=== PATIENT | female | born 1935 | race Caucasian/White ===

== ENCOUNTER 2019-08-16 20:09 | Inpatient (IN) | payer MEDICARE, OTHER ==
[2019-08-16 21:07] VITALS: BMI 28.3
[2019-08-16] MEDS ORDERED: Docusate 100 MG CAP PO PRN (21:10)
[2019-08-16] MEDS ORDERED: hydrALAZINE 20 MG/ML VIAL SLOW IVP PRN (21:22)
[2019-08-16] MEDS ORDERED: Cyclobenzaprine 10 MG TAB PO PRN (21:23)
[2019-08-16] MEDS ORDERED: Acetaminophen/Codeine 30-300mg Tablet PO PRN (21:23)
[2019-08-16] MEDS ORDERED: Acetaminophen/Codeine 30-300mg Tablet PO SCH (21:30)
[2019-08-16] MEDS ORDERED: Calcium Carbonate + Vit D 1 TAB PO SCH (21:30)
[2019-08-16] MEDS ORDERED: Montelukast Sodium 10 mg Tablet PO SCH (21:30)
[2019-08-16] MEDS ORDERED: Estrogens, Conjugated 0.3 MG TAB PO SCH (21:30)
[2019-08-16] MEDS ORDERED: Metoprolol Tartrate 25 MG TAB PO SCH (21:30)
[2019-08-16] MEDS ORDERED: Senokot 8.6 MG TAB PO SCH (21:30)
[2019-08-16] MEDS ORDERED: Hydrochlorothiazide 25 MG TAB PO SCH (21:30)
[2019-08-16] MEDS: Ondansetron ODT 4 MG TAB PO PRN (22:18)
[2019-08-17] MEDS: Acetaminophen/Codeine 30-300mg Tablet PO SCH ×6 (01:00→20:43)
[2019-08-17 05:36] LABS: Hemoglobin 8.8 g/dL (12.0-16.0); Platelet Count 162 thou/uL (130-400)
[2019-08-17] MEDS: Levothyroxine Sodium 75 MCG TAB PO SCH (05:49)
[2019-08-17] MEDS: Ondansetron ODT 4 MG TAB PO PRN ×2 (05:50→12:12)
[2019-08-17] MEDS: Ipratropium Bromide 2.5 ml Neb NEB SCH ×4 (05:52→17:10)
[2019-08-17 05:54] LABS: INR-International Normal Ratio 1.1; Prothrombin Time 13.9 SEC (12.0-14.7)
[2019-08-17] MEDS ORDERED: Acetaminophen 325 MG TAB PO SCH (08:00)
[2019-08-17] MEDS: Senokot 8.6 MG TAB PO SCH ×2 (08:21→20:54)
[2019-08-17] MEDS: Polyethylene Glycol 3350 17 GM Packet PO SCH (08:22)
[2019-08-17] MEDS: Famotidine 20 MG TAB PO SCH (08:22)
[2019-08-17] MEDS: Mometasone/Formoterol 60 PUFF AER INH SCH ×2 (08:29→20:57)
[2019-08-17] MEDS: Ibuprofen 400 MG TAB PO PRN ×2 (09:31→20:56)
[2019-08-17] MEDS ORDERED: Warfarin Sodium 5 MG TAB PO SCH (17:00)
[2019-08-17] MEDS ORDERED: Warfarin Sodium 2.5 MG TAB PO SCH (17:00)
[2019-08-17] MEDS: Estrogens, Conjugated 0.3 MG TAB PO SCH (20:49)
[2019-08-17] MEDS: Calcium Carbonate + Vit D 1 TAB PO SCH (20:52)
[2019-08-17] MEDS: Hydrochlorothiazide 25 MG TAB PO SCH (20:52)
[2019-08-17] MEDS: Montelukast Sodium 10 mg Tablet PO SCH (20:53)
[2019-08-17] MEDS: Metoprolol Tartrate 25 MG TAB PO SCH (20:53)
[2019-08-18] MEDS: Melatonin 3 MG TAB PO PRN (00:11)
[2019-08-18] MEDS: Ipratropium Bromide 2.5 ml Neb NEB SCH ×4 (00:15→17:23)
[2019-08-18] MEDS: Acetaminophen/Codeine 30-300mg Tablet PO SCH ×6 (02:54→19:59)
[2019-08-18] MEDS: Levothyroxine Sodium 75 MCG TAB PO SCH (05:17)
[2019-08-18 05:46] LABS: INR-International Normal Ratio 1.1; Prothrombin Time 14.6 SEC (12.0-14.7)
[2019-08-18] MEDS: Ondansetron ODT 4 MG TAB PO PRN ×3 (09:13→21:43)
[2019-08-18] MEDS: Mometasone/Formoterol 60 PUFF AER INH SCH ×2 (10:12→20:02)
[2019-08-18] MEDS: Famotidine 20 MG TAB PO SCH (10:12)
[2019-08-18] MEDS: Polyethylene Glycol 3350 17 GM Packet PO SCH (10:12)
[2019-08-18] MEDS: Senokot 8.6 MG TAB PO SCH ×2 (10:13→19:59)
[2019-08-18] MEDS: Ibuprofen 400 MG TAB PO PRN (15:21)
[2019-08-18] MEDS ORDERED: Warfarin Sodium 5 MG TAB PO SCH (17:00)
[2019-08-18] MEDS: Montelukast Sodium 10 mg Tablet PO SCH (19:59)
[2019-08-18] MEDS: Metoprolol Tartrate 25 MG TAB PO SCH (20:00)
[2019-08-18] MEDS: Hydrochlorothiazide 25 MG TAB PO SCH (20:00)
[2019-08-18] MEDS: Calcium Carbonate + Vit D 1 TAB PO SCH (20:01)
[2019-08-18] MEDS: Estrogens, Conjugated 0.3 MG TAB PO SCH (20:01)
[2019-08-19] MEDS: Melatonin 3 MG TAB PO PRN ×2 (00:11→23:05)
[2019-08-19] MEDS: Ibuprofen 400 MG TAB PO PRN (00:11)
[2019-08-19] MEDS: Ipratropium Bromide 2.5 ml Neb NEB SCH ×5 (00:12→23:05)
[2019-08-19] MEDS: Acetaminophen/Codeine 30-300mg Tablet PO SCH ×3 (00:49→08:51)
[2019-08-19] MEDS ORDERED: Ondansetron ODT 4 MG TAB ONE (02:46)
[2019-08-19] MEDS: Ondansetron ODT 4 MG TAB PO PRN ×3 (02:51→20:38)
[2019-08-19] MEDS: Levothyroxine Sodium 75 MCG TAB PO SCH (05:17)
[2019-08-19 05:20] LABS: Hemoglobin 8.3 g/dL (12.0-16.0); Platelet Count 171 thou/uL (130-400)
[2019-08-19 05:29] LABS: INR-International Normal Ratio 1.1; Prothrombin Time 14.5 SEC (12.0-14.7)
[2019-08-19] MEDS: Famotidine 20 MG TAB PO SCH (08:51)
[2019-08-19] MEDS: Polyethylene Glycol 3350 17 GM Packet PO SCH (08:52)
[2019-08-19] MEDS: Mometasone/Formoterol 60 PUFF AER INH SCH ×2 (08:52→20:40)
[2019-08-19] MEDS: Senokot 8.6 MG TAB PO SCH ×2 (08:52→20:39)
[2019-08-19 08:55] LABS: ALT (SGPT) 9 U/L (8-55); AST (SGOT) 19 U/L (5-34); Albumin 3.2 g/dL (3.4-4.8); Alkaline Phosphatase 56 U/L (40-110); Anion Gap 14 mmol/L (10-20); BUN (Urea Nitrogen) 27 mg/dL (9.8-20.1); Bilirubin, Total 1.1 mg/dL (0.2-1.2); Calc. Creatinine Clearance 60 mL/min (70-130); Calcium 8.9 mg/dL (7.8-10.44); Carbon Dioxide 28 mmol/L (23-31); Chloride 100 mmol/L (98-107); Estimated GFR-MDRD 62; Globulin 2.5 g/dL (2.4-3.5); Glucose 104 mg/dL (83-110); Magnesium 1.6 mg/dL (1.6-2.6); Potassium 3.5 mmol/L (3.5-5.1); Protein, Total 5.7 g/dL (6.0-8.3); Sodium 138 mmol/L (136-145)
[2019-08-19] MEDS: Acetaminophen 500 MG TAB PO SCH ×3 (11:28→23:04)
[2019-08-19] MEDS: Ibuprofen 800 MG TAB PO SCH ×2 (11:28→17:49)
[2019-08-19] MEDS ORDERED: Sodium Chloride Irrig Solution 250 ML BOT ONE (12:29)
--- NOTE | 2019-08-19 15:04 | HP ---
PRIMARY CARE PHYSICIAN: Dr. Veena Gomez in [place], [place]. HISTORY OF PRESENT ILLNESS: The patient is an 83-year-old female with past history of atrial fibrillation, being admitted to [facility] for continued rehabilitation, status post right hip fracture. The patient's hip fracture occurred as a result of ground level fall. She underwent right femur intramedullary nail fixation on August 15, 2019, and reportedly had no complications. Since admission, the patient, per nursing, has had nausea over the weekend and some diarrhea today. Per the patient, she actually had been having this issue since prior to arrival and has actually had poor appetite since after surgery. She has no other complaints and states the pain is under control at this time. She denies any abdominal pain. ALLERGIES: NO KNOWN DRUG ALLERGIES. PAST MEDICAL HISTORY: 1. Atrial fibrillation. 2. COPD. 3. Hypertension. 4. Hypothyroidism. 5. Postmenopausal syndrome. CURRENT MEDICATIONS: 1. Metoprolol tartrate 25 mg p.o. at bedtime. 2. Advair Diskus 250/50 one puff inhalation b.i.d. 3. Premarin 0.3 mg p.o. at bedtime. 4. Melatonin 3 mg p.o. at bedtime p.r.n. 5. Warfarin 7.5 mg every Monday. 6. Warfarin 5 mg p.o. Monday through Monday. 7. Simvastatin 40 mg p.o. at bedtime. 8. Spiriva 18 mcg inhalation daily. 9. Levothyroxine 75 mcg p.o. daily. 10. Hydrochlorothiazide 12.5 mg p.o. at bedtime. 11. Flexeril 5 mg p.o. t.i.d. p.r.n. 12. Calcium carbonate/vitamin D3 one tab p.o. at bedtime. PAST SURGICAL HISTORY: 1. Right hip intramedullary nail fixation. 2. Appendectomy. 3. Cholecystectomy. 4. Hysterectomy. 5. Brain surgery for hydrocephalus. SOCIAL HISTORY: The patient lives at home with her spouse. Denies tobacco, alcohol, or drug use. REVIEW OF SYSTEMS: GENERAL: The patient denies fever or chills. She does report appetite, decreased. EYES: The patient denies vision changes or eye pain. HENT: The patient denies nasal congestion or sore throat. CARDIOVASCULAR: The patient denies chest pain or palpitations. RESPIRATORY: The patient denies cough or shortness of breath. ABDOMEN: The patient reports nausea, vomiting, and diarrhea. Denies abdominal pain. SKIN: The patient denies any rash or pruritus. HEMATOLOGICAL: The patient denies easy bruising. MUSCULOSKELETAL: The patient denies weakness or joint pain. NEUROLOGICAL: The patient denies headache, numbness, or tingling. PSYCHIATRIC: The patient denies depression or anxiety symptoms. PHYSICAL EXAMINATION: VITAL SIGNS: Temperature 99.2, pulse 118, respirations 24, and O2 saturation 95 % on room air. GENERAL: The patient is alert and oriented x3, in no distress. HEENT: Eyes; pupils are equal, round, and reactive to light. Extraocular muscles intact. Conjunctivae are clear. Normocephalic, atraumatic. Moist mucous membranes. No oral lesions. NECK: Supple. CARDIOVASCULAR: Irregularly irregular rate and rhythm, tachycardic rate. No murmurs, rubs, or gallops. LUNGS: Clear to auscultation bilaterally. ABDOMEN: Normoactive bowel sounds. Soft, nontender to palpation. No organomegaly. No tenderness. EXTREMITIES: Normal bulk and tone. SKIN: No rashes or lesions. NEUROLOGICAL: Cranial nerves II through XII intact grossly. LABORATORY DATA: Hemoglobin 8.3, hematocrit 25.2, and platelet count 171. Coagulation panel; PT 14.5, INR 1.1. Chemistry panel; sodium 138, potassium 3.5, chloride 100, carbon dioxide 28, BUN 27, creatinine 0.87, glucose 104, calcium 8.9, magnesium 1.6, total bilirubin 1.1, AST 19, ALT 9, and alkaline phosphatase 56. TSH 2.5917. ASSESSMENT AND PLAN: 1. Status post right hip intramedullary nail. Physical therapy and occupational therapy have been ordered for rehabilitation purposes. We will monitor the patient's progress as she is able to participate with physical therapy. Outpatient followup with Dr. Parra has been arranged for September 26, 2019, and per his recommendations, we are able to remove opal on August 30, 2019. We will schedule Tylenol and Motrin for pain control. At this time, we will discontinue Tylenol with Codeine as the patient's nausea may be related to this. We will add on SCDs for deep venous thrombosis prophylaxis until warfarin is in therapeutic range. 2. Intractable nausea and vomiting with diarrhea, possibly related to a gastroenteritis. We will obtain stool studies. At this point, we will start the patient on a clear liquid diet and we will advance as tolerated. The patient encouraged to take sips of water all day. See above regarding discontinuation of Tylenol with Codeine. We will continue to monitor. 3. Atrial fibrillation. a. The patient's rate is currently tachycardic, possibly some degree of dehydration given. b. The patient's metoprolol currently was started as metoprolol tartrate and is currently scheduled as once daily. We are working to verify that this is what patient is actually taking at home as metoprolol tartrate is typically three dose twice daily. We will continue to monitor. c. We will monitor the patient's INRs and we will request the pharmacy to assist with dosing warfarin. 4. Chronic obstructive pulmonary disease. The patient tolerating room air. We will continue her home medications regarding this. 5. Hypothyroidism. The patient's TSH is within normal limits. We will continue levothyroxine. 6. Postmenopausal syndrome. The patient is on Premarin. I did discuss the risks and benefits associated with continuing Premarin especially regarding the patient's increased risk of deep venous thrombosis formation, status post hip fracture. The patient did express understanding and would like to continue with Premarin. We will monitor closely. 7. Hypertension. We will resume the patient's home antihypertensive regimen. We will continue to monitor BP. BP remained stable. Job ID: [id number] MTDD
[2019-08-19] MEDS ORDERED: Warfarin Sodium 2 MG TAB PO SCH (17:00)
[2019-08-19] MEDS: Metoclopramide HCl 10 MG TAB PO SCH ×2 (17:46→20:39)
[2019-08-19] MEDS: Calcium Carbonate + Vit D 1 TAB PO SCH (20:39)
[2019-08-19] MEDS: Hydrochlorothiazide 25 MG TAB PO SCH (20:39)
[2019-08-19] MEDS: Montelukast Sodium 10 mg Tablet PO SCH (20:39)
[2019-08-19] MEDS: Enoxaparin Sodium 80 MG/0.8 ML SYRINGE SC SCH (20:43)
[2019-08-19] MEDS ORDERED: PREMARIN 0.3 MG PO SCH (21:00)
[2019-08-20] MEDS: Ondansetron ODT 4 MG TAB PO PRN (05:09)
[2019-08-20 06:07] LABS: INR-International Normal Ratio 1.3
[2019-08-20] MEDS: Ibuprofen 800 MG TAB PO SCH ×2 (06:16→11:07)
[2019-08-20] MEDS: Acetaminophen 500 MG TAB PO SCH ×2 (06:16→11:08)
[2019-08-20] MEDS: Ipratropium Bromide 2.5 ml Neb NEB SCH ×3 (06:17→12:08)
[2019-08-20] MEDS: Levothyroxine Sodium 75 MCG TAB PO SCH (06:17)
[2019-08-20] MEDS: Mometasone/Formoterol 60 PUFF AER INH SCH (08:03)
[2019-08-20] MEDS: Senokot 8.6 MG TAB PO SCH (08:04)
[2019-08-20] MEDS: Polyethylene Glycol 3350 17 GM Packet PO SCH (08:04)
[2019-08-20] MEDS: Famotidine 20 MG TAB PO SCH (08:05)
[2019-08-20] MEDS: Metoclopramide HCl 10 MG TAB PO SCH (08:05)
[2019-08-20 08:28] LABS: #Basophils 0.1 thou/uL (0.0-0.2); #Eosinphils 0.1 thou/uL (0.0-0.7); #Lymphocytes 0.9 thou/uL (1.20-3.40); #Neutrophils 7.8 thou/uL (1.40-6.50); %Basophils 1.1 % (0.0-1.0); %Eosinophils 0.8 % (0.0-10.0); %Lymphocytes 8.9 % (21.0-51.0); %Monocytes 10.2 % (0.0-10.0); %Neutrophils 79.1 % (42.0-75.0); Hemoglobin 9.2 g/dL (12.0-16.0); Mean Corpuscular HGB CONC 31.5 g/dL (32.0-36.0); Mean Corpuscular Hemoglobin 29.9 pg (27.0-31.0); Mean Corpuscular Volume 94.9 fL (78.0-98.0); Platelet Count 208 thou/uL (130-400); RBC Distribution Width 14.2 % (11.5-14.5); Red Blood Cell (RBC) Count 3.09 mill/uL (4.20-5.40); White Blood Cell (WBC) Count 9.9 thou/uL (4.8-10.8)
[2019-08-20 08:37] LABS: ALT (SGPT) 10 U/L (8-55); AST (SGOT) 19 U/L (5-34); Albumin 3.5 g/dL (3.4-4.8); Alkaline Phosphatase 65 U/L (40-110); Anion Gap 18 mmol/L (10-20); BUN (Urea Nitrogen) 25 mg/dL (9.8-20.1); Bilirubin, Total 1.3 mg/dL (0.2-1.2); Calc. Creatinine Clearance 48 mL/min (70-130); Calcium 9.1 mg/dL (7.8-10.44); Carbon Dioxide 27 mmol/L (23-31); Chloride 97 mmol/L (98-107); Estimated GFR-MDRD 49; Globulin 2.8 g/dL (2.4-3.5); Glucose 111 mg/dL (83-110); Potassium 3.2 mmol/L (3.5-5.1); Protein, Total 6.3 g/dL (6.0-8.3); Sodium 139 mmol/L (136-145)
--- NOTE | 2019-08-20 09:22 | RAD ---
ABDOMEN 2 VIEWS: HISTORY: Nausea and vomiting. FINDINGS: There are abnormally dilated loops of small bowel with air fluid levels, evidence for at least a mid grade small bowel obstruction. There is some gas and fecal material in the colon. There is increase d opacity in the left upper quadrant which may represent a fluid-filled distended stomach. No free i ntraperitoneal air. IMPRESSION: Evidence for small bowel obstruction. Probable fluid-filled distended stomach. Minimal gas and feca l material in the colon. CODE T POS: TPC
[2019-08-20] MEDS ORDERED: Sodium Chloride 0.9% 500 ML IV SCH (09:45)
[2019-08-20] MEDS ORDERED: Potassium Chloride 20 MEQ/100 ML PREMIX BAG IVPB SCH (09:45)
[2019-08-20] MEDS ORDERED: Sodium Chloride 0.9% 1,000 ML IV SCH (09:45)
[2019-08-20] MEDS ORDERED: Potassium Chloride 20 MEQ in Premix Bag 1 BAG IVPB SCH (10:00)
[2019-08-20] MEDS: Enoxaparin Sodium 80 MG/0.8 ML SYRINGE SC SCH (10:01)
[2019-08-20 11:49] VITALS: BP 138/60; TEMP 99.2
[2019-08-20] MEDS ORDERED: Sodium Chloride 0.9% 500 ML BAG ONE (12:31)
[2019-08-20] MEDS ORDERED: Sodium Chloride 0.9% 1,000 ML BAG ONE (12:31)
--- NOTE | 2019-08-21 04:56 | DIS ---
DATE OF ADMISSION: 08/16/2019 DATE OF DISCHARGE: 08/20/2019 ADMITTING ATTENDING: Yuridia Flores MD. DISCHARGE ATTENDING: Yuridia Flores MD. PRIMARY CARE PHYSICIAN: Dr. Veena Gomez in [place], [place]. PRIMARY DIAGNOSIS AND REASON FOR TRANSFER: Small-bowel obstruction. SECONDARY DIAGNOSES: 1. Status post right hip fracture with intramedullary nail. 2. Chronic atrial fibrillation. 3. Chronic obstructive pulmonary disease. 4. Hypothyroidism. 5. Postmenopausal syndrome. DISCHARGE MEDICATIONS: 1. Metoprolol succinate 25 mg p.o. at bedtime. 2. Advair 250/50 one puff inhalation b.i.d. 3. Premarin 0.3 mg p.o. at bedtime. 4. Montelukast 10 mg p.o. q.p.m. 5. Melatonin 3 mg p.o. at bedtime p.r.n. 6. Warfarin sodium 6 mg p.o. daily. 7. Simvastatin 40 mg p.o. at bedtime. 8. Spiriva 18 mcg one inhalation daily. 9. Synthroid 75 mcg p.o. daily. 10. Hydrochlorothiazide 12.5 mg p.o. at bedtime. 11. Ibuprofen 400 mg p.o. q.8 hours p.r.n. 12. Pepcid 20 mg p.o. daily. 13. Flexeril 5 mg p.o. t.i.d. p.r.n. 14. Calcium carbonate/vitamin D3 one tablet p.o. at bedtime. DISCONTINUED MEDICATIONS: None. PROCEDURES: Abdominal x-ray, 2-view that showed evidence for small bowel obstruction, probable fluid-filled distended stomach. Minimal gas and fecal material in the colon. HOSPITAL COURSE: The patient is an is an 83-year-old female with recent admission for rehabilitation status post right hip surgery. The patient was noted to have significant nausea, vomiting, intractable to antiemetic medications. Abdominal x-ray performed today showed the above findings. The decision was made to transfer patient to a higher level of care with surgical specialties available, if needed. At this moment, pt still reports significant nausea, and hesistancy to eat. She has not had a bowel movement, but does report passing flatus. PHYSICAL EXAMINATION: VITAL SIGNS: On the day of discharge, patient's vitals were as follows, temperature 99.2, pulse 105, respirations 16, oxygen 98% on room air, blood pressure 138/ 60. GENERAL: The patient is alert and oriented, ill-appearing, otherwise in no distress. HEENT: Normocephalic, atraumatic. Dry mucous membranes and extraocular muscles intact. HEART: Irregularly irregular rate and rhythm. Tachycardic rate. LUNGS: Clear to auscultation bilaterally. No crackles, wheezes, or rhonchi. ABDOMEN: Mild distention. Nontender to palpation. Normoactive bowel sounds. EXTREMITIES: Normal bulk and tone. No edema. LABORATORY DATA: Hemoglobin 9.2, hematocrit 29.3. Coagulation panel, PT 16.0, INR 1.3. DISPOSITION: Stable. Patient transfer was arranged after speaking with the admitting physician in [place], who agreed for transfer. IV fluids were started prior to transfer. DISCHARGE INSTRUCTIONS: 1. Location: [facility] in [place], [place]. 2. Diet: N.p.o. 3. Activities: Ad adrianna. However, patient may be evaluated for physical therapy. 4. Followup: The patient will likely be readmitted to [facility] [place] pending resolution of small-bowel obstruction. Total time spent arranging discharge/coordinating transfer: 35 minutes Job ID: [id number] MTDD
== END 2019-08-20 12:37 | disposition short-term general hospital (02) | DRG 389 ==
LOC: MADMS 20:09
PROVIDERS: ADMIT Family Medicine; ATTEND Family Medicine
DX: K56.609 Unspecified intestinal obstruction, unspecified as to partial versus complete obstruction (principal); I48.20 Chronic atrial fibrillation, unspecified; J44.9 Chronic obstructive pulmonary disease, unspecified; E03.9 Hypothyroidism, unspecified; N95.9 Unspecified menopausal and perimenopausal disorder; E86.0 Dehydration; I10 Essential (primary) hypertension; Z98.890 Other specified postprocedural states; Z90.49 Acquired absence of other specified parts of digestive tract; Z90.710 Acquired absence of both cervix and uterus
CPT/HCPCS: 36415; 74019; 80053; 83735; 84443; 85014; 85018; 85025; 85049; 85610; 94640; 94664; J1650; J7050; Q0162

== ENCOUNTER 2019-09-03 13:39 | Inpatient (IN) | payer MEDICARE, OTHER ==
[2019-09-03] MEDS ORDERED: Senokot S 8.6-50 MG TAB PO PRN (17:00)
[2019-09-03] MEDS ORDERED: Ondansetron ODT 4 MG TAB PO PRN (17:00)
[2019-09-03] MEDS ORDERED: Bisacodyl 5 MG TAB PO PRN (17:00)
[2019-09-03] MEDS ORDERED: Cyclobenzaprine 10 MG TAB PO PRN (19:10)
[2019-09-03] MEDS: Calcium Carbonate 600 MG + Vit D TAB PO SCH (20:49)
[2019-09-03] MEDS: Hydrochlorothiazide 25 MG TAB PO SCH (20:50)
[2019-09-03] MEDS: Montelukast Sodium 10 mg Tablet PO SCH (20:51)
[2019-09-03] MEDS: Simvastatin 40 MG TAB PO SCH (20:51)
[2019-09-03] MEDS: Mometasone/Formoterol 200/5 60 PUFF INH SCH (20:52)
[2019-09-03] MEDS: ESTROGENS CONJUGATED 0.3 MG PO SCH (20:54)
[2019-09-03] MEDS: Melatonin 3 MG TAB PO PRN (20:59)
[2019-09-04] MEDS: Ipratropium Bromide 2.5 ml Neb NEB SCH ×4 (00:49→17:15)
[2019-09-04] MEDS: Levothyroxine Sodium 75 MCG TAB PO SCH (05:24)
[2019-09-04] MEDS: Mometasone/Formoterol 200/5 60 PUFF INH SCH ×2 (08:17→20:18)
[2019-09-04] MEDS: Famotidine 20 MG TAB PO SCH (08:17)
[2019-09-04] MEDS: Polyethylene Glycol 3350 17 GM Packet PO SCH (08:17)
[2019-09-04] MEDS: Ibuprofen 200 MG TAB PO PRN (08:17)
[2019-09-04] MEDS: Enoxaparin Sodium 40 MG/0.4 ML SYRINGE SC SCH (08:17)
[2019-09-04] MEDS: Warfarin Sodium 5 MG TAB PO SCH (17:14)
[2019-09-04] MEDS: ESTROGENS CONJUGATED 0.3 MG PO SCH (20:15)
[2019-09-04] MEDS: Montelukast Sodium 10 mg Tablet PO SCH (20:16)
[2019-09-04] MEDS: Calcium Carbonate 600 MG + Vit D TAB PO SCH (20:16)
[2019-09-04] MEDS: Simvastatin 40 MG TAB PO SCH (20:16)
[2019-09-04] MEDS: Hydrochlorothiazide 25 MG TAB PO SCH (20:17)
[2019-09-04] MEDS: Melatonin 3 MG TAB PO PRN (22:01)
[2019-09-05] MEDS: Ipratropium Bromide 2.5 ml Neb NEB SCH ×4 (01:38→17:38)
[2019-09-05] MEDS: Ibuprofen 200 MG TAB PO PRN (03:53)
[2019-09-05] MEDS: Levothyroxine Sodium 75 MCG TAB PO SCH (05:03)
[2019-09-05] MEDS: Mometasone/Formoterol 200/5 60 PUFF INH SCH ×2 (08:50→21:36)
[2019-09-05] MEDS: Enoxaparin Sodium 40 MG/0.4 ML SYRINGE SC SCH (08:51)
[2019-09-05] MEDS: Polyethylene Glycol 3350 17 GM Packet PO SCH (08:51)
[2019-09-05] MEDS: Famotidine 20 MG TAB PO SCH (08:52)
[2019-09-05] MEDS: Warfarin Sodium 5 MG TAB PO SCH (17:37)
[2019-09-05] MEDS: Calcium Carbonate 600 MG + Vit D TAB PO SCH (21:34)
[2019-09-05] MEDS: ESTROGENS CONJUGATED 0.3 MG PO SCH (21:34)
[2019-09-05] MEDS: Hydrochlorothiazide 25 MG TAB PO SCH (21:35)
[2019-09-05] MEDS: Montelukast Sodium 10 mg Tablet PO SCH (21:36)
[2019-09-05] MEDS: Simvastatin 40 MG TAB PO SCH (21:36)
[2019-09-05] MEDS: Melatonin 3 MG TAB PO PRN (22:02)
[2019-09-06] MEDS: Ipratropium Bromide 2.5 ml Neb NEB SCH ×4 (01:10→18:08)
[2019-09-06] MEDS: Levothyroxine Sodium 75 MCG TAB PO SCH (06:06)
[2019-09-06 06:07] LABS: Prothrombin Time 13.1 SEC (12.0-14.7)
[2019-09-06] MEDS: Mometasone/Formoterol 200/5 60 PUFF INH SCH ×2 (09:29→21:13)
[2019-09-06] MEDS: Enoxaparin Sodium 40 MG/0.4 ML SYRINGE SC SCH (09:30)
[2019-09-06] MEDS: Famotidine 20 MG TAB PO SCH (09:30)
[2019-09-06] MEDS: Polyethylene Glycol 3350 17 GM Packet PO SCH (09:30)
[2019-09-06] MEDS: Warfarin Sodium 5 MG TAB PO SCH (17:01)
[2019-09-06] MEDS: ESTROGENS CONJUGATED 0.3 MG PO SCH (21:11)
[2019-09-06] MEDS: Calcium Carbonate 600 MG + Vit D TAB PO SCH (21:11)
[2019-09-06] MEDS: Hydrochlorothiazide 25 MG TAB PO SCH (21:12)
[2019-09-06] MEDS: Montelukast Sodium 10 mg Tablet PO SCH (21:13)
[2019-09-06] MEDS: Melatonin 3 MG TAB PO PRN (21:14)
[2019-09-06] MEDS: Simvastatin 40 MG TAB PO SCH (21:14)
[2019-09-07] MEDS: Ipratropium Bromide 2.5 ml Neb NEB SCH ×4 (01:12→17:56)
[2019-09-07] MEDS: Levothyroxine Sodium 75 MCG TAB PO SCH (05:21)
[2019-09-07 05:48] LABS: Hemoglobin 9.5 g/dL (12.0-16.0); Platelet Count 201 thou/uL (130-400)
[2019-09-07 05:51] LABS: INR-International Normal Ratio 1.1; Prothrombin Time 13.9 SEC (12.0-14.7)
[2019-09-07] MEDS: Enoxaparin Sodium 40 MG/0.4 ML SYRINGE SC SCH (08:11)
[2019-09-07] MEDS: Famotidine 20 MG TAB PO SCH (08:11)
[2019-09-07] MEDS: Polyethylene Glycol 3350 17 GM Packet PO SCH (08:12)
[2019-09-07] MEDS: Mometasone/Formoterol 200/5 60 PUFF INH SCH ×2 (08:13→21:07)
[2019-09-07] MEDS ORDERED: Warfarin Sodium 2.5 MG TAB PO SCH (17:00)
[2019-09-07] MEDS: ESTROGENS CONJUGATED 0.3 MG PO SCH (21:06)
[2019-09-07] MEDS: Calcium Carbonate 600 MG + Vit D TAB PO SCH (21:06)
[2019-09-07] MEDS: Hydrochlorothiazide 25 MG TAB PO SCH (21:06)
[2019-09-07] MEDS: Simvastatin 40 MG TAB PO SCH (21:08)
[2019-09-07] MEDS: Melatonin 3 MG TAB PO PRN (21:08)
[2019-09-07] MEDS: Montelukast Sodium 10 mg Tablet PO SCH (21:08)
[2019-09-08] MEDS: Ipratropium Bromide 2.5 ml Neb NEB SCH ×4 (01:01→18:05)
[2019-09-08] MEDS: Levothyroxine Sodium 75 MCG TAB PO SCH (05:14)
[2019-09-08 05:28] LABS: INR-International Normal Ratio 1.1; Prothrombin Time 14.6 SEC (12.0-14.7)
[2019-09-08] MEDS: Enoxaparin Sodium 40 MG/0.4 ML SYRINGE SC SCH (08:47)
[2019-09-08] MEDS: Famotidine 20 MG TAB PO SCH (08:47)
[2019-09-08] MEDS: Ibuprofen 200 MG TAB PO PRN (08:47)
[2019-09-08] MEDS: Polyethylene Glycol 3350 17 GM Packet PO SCH (08:48)
[2019-09-08] MEDS: Mometasone/Formoterol 200/5 60 PUFF INH SCH ×2 (08:49→20:49)
[2019-09-08] MEDS: Warfarin Sodium 2 MG TAB PO SCH (16:54)
[2019-09-08] MEDS: Warfarin Sodium 5 MG TAB PO SCH (16:55)
[2019-09-08] MEDS: Hydrochlorothiazide 25 MG TAB PO SCH (20:48)
[2019-09-08] MEDS: ESTROGENS CONJUGATED 0.3 MG PO SCH (20:48)
[2019-09-08] MEDS: Calcium Carbonate 600 MG + Vit D TAB PO SCH (20:48)
[2019-09-08] MEDS: Acetaminophen 325 MG TAB PO PRN (20:50)
[2019-09-08] MEDS: Simvastatin 40 MG TAB PO SCH (20:50)
[2019-09-08] MEDS: Montelukast Sodium 10 mg Tablet PO SCH (20:50)
[2019-09-08] MEDS: Melatonin 3 MG TAB PO PRN (20:50)
[2019-09-09] MEDS: Ipratropium Bromide 2.5 ml Neb NEB SCH ×4 (01:28→18:06)
[2019-09-09] MEDS: Levothyroxine Sodium 75 MCG TAB PO SCH (05:30)
[2019-09-09 05:58] LABS: INR-International Normal Ratio 1.1; Prothrombin Time 14.6 SEC (12.0-14.7)
[2019-09-09] MEDS: Famotidine 20 MG TAB PO SCH (09:07)
[2019-09-09] MEDS: Polyethylene Glycol 3350 17 GM Packet PO SCH (09:08)
[2019-09-09] MEDS: Enoxaparin Sodium 40 MG/0.4 ML SYRINGE SC SCH (09:08)
[2019-09-09] MEDS: Mometasone/Formoterol 200/5 60 PUFF INH SCH ×2 (09:11→20:58)
--- NOTE | 2019-09-09 13:20 | HP ---
Date of Encounter: 09/03/2019 HISTORY OF PRESENT ILLNESS: The patient is an 83-year-old female with past history of chronic atrial fibrillation, being readmitted to senior living for rehabilitation status post right hip fracture that occurred as a result of a ground level fall on August 15, 2019. The patient was initially admitted to senior living on August 16, 2019, however, the patient was discharged on August, after complaints of intractable nausea and vomiting, ultimately found to be due to small bowel obstruction. The patient was transferred to [facility] for higher level of care. She underwent NG decompression and she was found to have a volume overload after receiving intravenous fluids and was diuresed appropriately. Of note, the patient also developed severe odynophagia. She underwent an EGD that showed erosive esophagitis consistent with severe acid reflux. This ultimately resolved prior to discharge from that hospital. The patient is being readmitted here for daily physical therapy and occupational therapy. ALLERGIES: NO KNOWN DRUG ALLERGIES. PAST MEDICAL HISTORY: 1. Atrial fibrillation. 2. COPD. 3. Hypertension. 4. Hypothyroidism. 5. Postmenopausal syndrome. 6. Gastroesophageal reflux disease. CURRENT MEDICATIONS: 1. Asmanex HFA 200 mcg one puff inhalation b.i.d. 2. Atrovent 2.5 mL nebulization q.6 hours p.r.n. 3. Flexeril 5 mg p.o. t.i.d. p.r.n. 4. Calcium carbonate/vitamin D3, one tablet p.o. at bedtime. 5. Premarin 0.3 mg p.o. at bedtime. 6. Hydrochlorothiazide 12.5 mg p.o. at bedtime. 7. Pepcid 20 mg p.o. daily. 8. Ibuprofen 400 mg p.o. q.8 hours p.r.n. 9. Melatonin 3 mg p.o. at bedtime p.r.n. 10. Synthroid 75 mcg p.o. daily. 11. Metoprolol succinate 50 mg p.o. daily. 12. Dulera 200 mcg/5 mcg one puff inhalation b.i.d. 13. Montelukast 10 mg p.o. q.p.m. 14. MiraLAX 17 g p.o. daily p.r.n. 15. Simvastatin 40 mg p.o. at bedtime. 16. Warfarin 5 mg p.o. daily. 17. Dulcolax 10 mg p.o. daily p.r.n. 18. Tylenol 650 mg p.o. q.4 hours p.r.n. 19. DuoNeb 3 mL nebs q.4 hours p.r.n. PAST SURGICAL HISTORY: 1. Right hip intramedullary nail fixation. 2. Appendectomy. 3. Cholecystectomy. 4. Hysterectomy. 5. Brain surgery for hydrocephalus. SOCIAL HISTORY: The patient lives at home with her . Denies tobacco, alcohol, or drug use. REVIEW OF SYSTEMS: GENERAL: The patient denies fever, chills, or night sweats. Does not report continued decrease in appetite. HEENT: The patient denies vision changes or eye pain. The patient denies nasal congestion or sore throat. CARDIOVASCULAR: The patient denies chest pain or palpitations. RESPIRATORY: The patient denies cough and shortness of breath. ABDOMEN: The patient denies nausea, vomiting, diarrhea, and abdominal pain. SKIN: The patient denies rash or pruritus. HEMATOLOGIC: The patient denies easy bruising. MUSCULOSKELETAL: The patient denies weakness or joint pain. NEUROLOGIC: The patient denies headache, numbness. PSYCHIATRIC: The patient denies anxiety and depression. PHYSICAL EXAMINATION: VITAL SIGNS: Initial vital signs on admission; temperature 99.2, pulse 81, respirations 16, oxygen 94% on room air. Blood pressure 116/53. GENERAL: The patient is alert and oriented x3. No distress. HEENT: Eyes; pupils are equal, round, reactive to light. Extraocular muscles are intact. Conjunctivae clear. Normocephalic, atraumatic. Moist mucous membranes. NECK: Supple. CARDIOVASCULAR: Irregularly irregular rate and rhythm, no tachycardia, no murmurs, rubs, or gallops. LUNGS: Clear to auscultation bilaterally with no crackles, rhonchi, or wheezes. ABDOMEN: Normoactive bowel sounds. Soft, nontender to palpation. No organomegaly. EXTREMITIES: Normal bulk and tone. SKIN: No rashes or lesions. Well-healing surgical incision. NEUROLOGIC: Cranial nerves 2 through 12 intact grossly. ASSESSMENT AND PLAN: 1. Status post right hip intramedullary nail. Physical therapy and occupational therapy will be continued. Tylenol and Motrin available for pain control. 2. Gastroesophageal reflux disease. We will continue patient's Pepcid. 3. Chronic atrial fibrillation. The patient is currently rate controlled. We will continue Toprol-XL. We will ask for pharmacy assistance with warfarin dosing and titration. We will continue Lovenox until INR is therapeutic. 4. Chronic obstructive pulmonary disease. The patient is tolerating room air. We will resume patient's home inhalers. 5. Hypothyroidism. TSH under control. We will resume levothyroxine. 6. Postmenopausal syndrome. We will hold Premarin while the patient is here in the hospital. 7. Hypertension. The patient's blood pressure is stable. We will resume her antihypertensive regimen. DISPOSITION: Stable. Length of stay to depend on patient's progress with physical therapy and occupational therapy. Job ID: [id number] [facility]
[2019-09-09] MEDS: Ferrous Sulfate 325 MG TAB PO SCH (17:14)
[2019-09-09] MEDS: Warfarin Sodium 2 MG TAB PO SCH (17:14)
[2019-09-09] MEDS: Warfarin Sodium 5 MG TAB PO SCH (17:14)
[2019-09-09] MEDS: Ibuprofen 200 MG TAB PO PRN (18:06)
[2019-09-09] MEDS: Calcium Carbonate 600 MG + Vit D TAB PO SCH (20:56)
[2019-09-09] MEDS: Hydrochlorothiazide 25 MG TAB PO SCH (20:57)
[2019-09-09] MEDS: ESTROGENS CONJUGATED 0.3 MG PO SCH (20:57)
[2019-09-09] MEDS: Simvastatin 40 MG TAB PO SCH (20:59)
[2019-09-09] MEDS: Melatonin 3 MG TAB PO PRN (20:59)
[2019-09-09] MEDS: Montelukast Sodium 10 mg Tablet PO SCH (20:59)
[2019-09-10] MEDS: Ipratropium Bromide 2.5 ml Neb NEB SCH ×3 (01:00→12:30)
[2019-09-10] MEDS: Levothyroxine Sodium 75 MCG TAB PO SCH (04:45)
[2019-09-10 05:23] LABS: INR-International Normal Ratio 1.4
[2019-09-10] MEDS: Mometasone/Formoterol 200/5 60 PUFF INH SCH ×2 (08:37→21:12)
[2019-09-10] MEDS: Famotidine 20 MG TAB PO SCH (08:39)
[2019-09-10] MEDS: Ferrous Sulfate 325 MG TAB PO SCH ×2 (08:39→17:17)
[2019-09-10] MEDS: Polyethylene Glycol 3350 17 GM Packet PO SCH (08:39)
[2019-09-10] MEDS: Enoxaparin Sodium 40 MG/0.4 ML SYRINGE SC SCH (09:03)
[2019-09-10] MEDS ORDERED: Ipratropium Bromide 2.5 ml Neb NEB PRN (12:43)
[2019-09-10] MEDS: Warfarin Sodium 2 MG TAB PO SCH (17:16)
[2019-09-10] MEDS: Warfarin Sodium 5 MG TAB PO SCH (17:17)
[2019-09-10] MEDS: Calcium Carbonate 600 MG + Vit D TAB PO SCH (21:11)
[2019-09-10] MEDS: ESTROGENS CONJUGATED 0.3 MG PO SCH (21:12)
[2019-09-10] MEDS: Hydrochlorothiazide 25 MG TAB PO SCH (21:14)
[2019-09-10] MEDS: Montelukast Sodium 10 mg Tablet PO SCH (21:15)
[2019-09-10] MEDS: Simvastatin 40 MG TAB PO SCH (21:15)
[2019-09-10] MEDS: Melatonin 3 MG TAB PO PRN (21:15)
[2019-09-11] MEDS: Levothyroxine Sodium 75 MCG TAB PO SCH (05:31)
[2019-09-11 05:43] LABS: INR-International Normal Ratio 1.6; Prothrombin Time 18.8 SEC (12.0-14.7)
[2019-09-11] MEDS: Polyethylene Glycol 3350 17 GM Packet PO SCH (08:07)
[2019-09-11] MEDS: Enoxaparin Sodium 40 MG/0.4 ML SYRINGE SC SCH (08:07)
[2019-09-11] MEDS: Ferrous Sulfate 325 MG TAB PO SCH ×2 (08:07→17:06)
[2019-09-11] MEDS: Famotidine 20 MG TAB PO SCH (08:07)
[2019-09-11] MEDS: Mometasone/Formoterol 200/5 60 PUFF INH SCH ×2 (08:10→20:37)
[2019-09-11] MEDS: Warfarin Sodium 2 MG TAB PO SCH (17:06)
[2019-09-11] MEDS: Warfarin Sodium 5 MG TAB PO SCH (17:06)
[2019-09-11] MEDS: Hydrochlorothiazide 25 MG TAB PO SCH (20:38)
[2019-09-11] MEDS: Calcium Carbonate 600 MG + Vit D TAB PO SCH (20:38)
[2019-09-11] MEDS: Montelukast Sodium 10 mg Tablet PO SCH (20:39)
[2019-09-11] MEDS: Simvastatin 40 MG TAB PO SCH (21:03)
[2019-09-11] MEDS: CONJUGATED ESTROGENS PO SCH (21:05)
[2019-09-12] MEDS: Levothyroxine Sodium 75 MCG TAB PO SCH (05:35)
[2019-09-12] MEDS: Enoxaparin Sodium 40 MG/0.4 ML SYRINGE SC SCH (08:21)
[2019-09-12] MEDS: Ferrous Sulfate 325 MG TAB PO SCH ×2 (08:21→17:26)
[2019-09-12] MEDS: Polyethylene Glycol 3350 17 GM Packet PO SCH (08:21)
[2019-09-12] MEDS: Famotidine 20 MG TAB PO SCH (08:21)
[2019-09-12] MEDS: Mometasone/Formoterol 200/5 60 PUFF INH SCH ×2 (08:22→20:05)
[2019-09-12 13:32] LABS: INR-International Normal Ratio 1.8; Prothrombin Time 20.8 SEC (12.0-14.7)
[2019-09-12] MEDS: Ibuprofen 200 MG TAB PO PRN (14:38)
[2019-09-12] MEDS: Warfarin Sodium 2 MG TAB PO SCH (17:27)
[2019-09-12] MEDS: Warfarin Sodium 5 MG TAB PO SCH (17:27)
[2019-09-12] MEDS: Calcium Carbonate 600 MG + Vit D TAB PO SCH (20:09)
[2019-09-12] MEDS: Montelukast Sodium 10 mg Tablet PO SCH (20:09)
[2019-09-12] MEDS: Hydrochlorothiazide 25 MG TAB PO SCH (20:10)
[2019-09-12] MEDS: Simvastatin 40 MG TAB PO SCH (20:10)
[2019-09-12] MEDS: CONJUGATED ESTROGENS PO SCH (20:12)
[2019-09-13 05:47] LABS: INR-International Normal Ratio 2.1; Prothrombin Time 23.8 SEC (12.0-14.7)
[2019-09-13] MEDS: Levothyroxine Sodium 75 MCG TAB PO SCH (06:07)
[2019-09-13] MEDS: Mometasone/Formoterol 200/5 60 PUFF INH SCH ×2 (09:03→20:36)
[2019-09-13] MEDS: Ferrous Sulfate 325 MG TAB PO SCH ×2 (09:04→17:36)
[2019-09-13] MEDS: Famotidine 20 MG TAB PO SCH (09:04)
[2019-09-13] MEDS: Enoxaparin Sodium 40 MG/0.4 ML SYRINGE SC SCH (09:04)
[2019-09-13] MEDS: Polyethylene Glycol 3350 17 GM Packet PO SCH (09:05)
[2019-09-13] MEDS: Acetaminophen 325 MG TAB PO PRN (15:41)
[2019-09-13] MEDS: Warfarin Sodium 2 MG TAB PO SCH (17:36)
[2019-09-13] MEDS: Warfarin Sodium 5 MG TAB PO SCH (17:36)
--- NOTE | 2019-09-13 20:00 | OP ---
DATE OF PROCEDURE: 09/13/2019 SUBJECTIVE: Ms. Rohini Delgado is an 83-year-old female, here for rehabilitation status post right hip surgery. She is currently resting comfortably in bed. Denies any complaints at this time. Pain is well controlled. Appetite is improving. OBJECTIVE: VITAL SIGNS: Temperature 97.3, pulse 76, respirations 16, oxygen 98% on room air, and blood pressure 126/56. GENERAL: The patient is alert and oriented, in no distress. HEENT: Extraocular muscles intact. Moist mucous membranes. CARDIOVASCULAR: Irregularly irregular rhythm. Normal rate. No murmurs, rubs, or gallops. LUNGS: Clear to auscultation bilaterally. ABDOMEN: Soft, nontender to palpation. EXTREMITIES/SKIN: No rashes or lesions. Callus noted to the left 4th toe, lateral aspect. ASSESSMENT AND PLAN: 1. Status post right hip intramedullary nail. Physical Therapy and Occupational Therapy in place. The patient showing continued progress, but per Physical Therapy notes, has not yet met conditions, but is not yet at goal. We will continue pain medications as needed. 2. Chronic atrial fibrillation, rate controlled at this time. Continue warfarin. Pharmacy is assisting with dosage. 3. Chronic obstructive pulmonary disease. The patient is tolerating room air. We will resume the patient's home bronchodilators. 4. Callus noted. The patient occasionally notes pain in her toe when stepping on the ground. This will need to be addressed on an outpatient basis. The patient will need Podiatry referral. 5. Hypertension. Blood pressure stable. Continue home antihypertensive regimen. 6. Hypothyroidism. TSH under control. Continue levothyroxine. Job ID: [id number]
[2019-09-13] MEDS: Calcium Carbonate 600 MG + Vit D TAB PO SCH (20:34)
[2019-09-13] MEDS: Montelukast Sodium 10 mg Tablet PO SCH (20:34)
[2019-09-13] MEDS: Simvastatin 40 MG TAB PO SCH (20:35)
[2019-09-13] MEDS: Hydrochlorothiazide 25 MG TAB PO SCH (20:35)
[2019-09-13] MEDS: CONJUGATED ESTROGENS PO SCH (20:37)
[2019-09-13] MEDS: Ibuprofen 200 MG TAB PO PRN (23:07)
[2019-09-13] MEDS: Melatonin 3 MG TAB PO PRN (23:08)
[2019-09-14] MEDS: Levothyroxine Sodium 75 MCG TAB PO SCH (05:33)
[2019-09-14 06:26] LABS: INR-International Normal Ratio 2.3; Prothrombin Time 24.8 SEC (12.0-14.7)
[2019-09-14] MEDS: Ferrous Sulfate 325 MG TAB PO SCH ×2 (09:23→17:19)
[2019-09-14] MEDS: Polyethylene Glycol 3350 17 GM Packet PO SCH (09:23)
[2019-09-14] MEDS: Enoxaparin Sodium 40 MG/0.4 ML SYRINGE SC SCH (09:23)
[2019-09-14] MEDS: Famotidine 20 MG TAB PO SCH (09:23)
[2019-09-14] MEDS: Mometasone/Formoterol 200/5 60 PUFF INH SCH ×2 (09:24→20:30)
[2019-09-14] MEDS: Warfarin Sodium 2 MG TAB PO SCH (17:19)
[2019-09-14] MEDS: Warfarin Sodium 5 MG TAB PO SCH (17:20)
[2019-09-14] MEDS: Hydrochlorothiazide 25 MG TAB PO SCH (20:26)
[2019-09-14] MEDS: Calcium Carbonate 600 MG + Vit D TAB PO SCH (20:31)
[2019-09-14] MEDS: Montelukast Sodium 10 mg Tablet PO SCH (20:31)
[2019-09-14] MEDS: Simvastatin 40 MG TAB PO SCH (20:32)
[2019-09-14] MEDS: CONJUGATED ESTROGENS PO SCH (20:33)
[2019-09-15] MEDS: Levothyroxine Sodium 75 MCG TAB PO SCH (05:17)
[2019-09-15 06:15] LABS: INR-International Normal Ratio 2.4; Prothrombin Time 26.1 SEC (12.0-14.7)
[2019-09-15] MEDS: Ferrous Sulfate 325 MG TAB PO SCH ×2 (08:39→17:24)
[2019-09-15] MEDS: Enoxaparin Sodium 40 MG/0.4 ML SYRINGE SC SCH (08:39)
[2019-09-15] MEDS: Mometasone/Formoterol 200/5 60 PUFF INH SCH ×2 (08:39→20:50)
[2019-09-15] MEDS: Famotidine 20 MG TAB PO SCH (08:39)
[2019-09-15] MEDS: Polyethylene Glycol 3350 17 GM Packet PO SCH (08:39)
[2019-09-15] MEDS: Warfarin Sodium 2 MG TAB PO SCH (17:24)
[2019-09-15] MEDS: Warfarin Sodium 5 MG TAB PO SCH (17:25)
[2019-09-15] MEDS: Montelukast Sodium 10 mg Tablet PO SCH (20:49)
[2019-09-15] MEDS: Simvastatin 40 MG TAB PO SCH (20:49)
[2019-09-15] MEDS: Hydrochlorothiazide 25 MG TAB PO SCH (20:49)
[2019-09-15] MEDS: Calcium Carbonate 600 MG + Vit D TAB PO SCH (20:49)
[2019-09-15] MEDS: CONJUGATED ESTROGENS PO SCH (20:50)
[2019-09-16] MEDS: Levothyroxine Sodium 75 MCG TAB PO SCH (05:27)
[2019-09-16 06:18] LABS: INR-International Normal Ratio 2.6; Prothrombin Time 27.8 SEC (12.0-14.7)
[2019-09-16] MEDS: Enoxaparin Sodium 40 MG/0.4 ML SYRINGE SC SCH (09:12)
[2019-09-16] MEDS: Ferrous Sulfate 325 MG TAB PO SCH ×2 (09:12→17:05)
[2019-09-16] MEDS: Famotidine 20 MG TAB PO SCH (09:13)
[2019-09-16] MEDS: Mometasone/Formoterol 200/5 60 PUFF INH SCH ×2 (09:13→20:34)
[2019-09-16] MEDS: Polyethylene Glycol 3350 17 GM Packet PO SCH (09:13)
[2019-09-16] MEDS: Ibuprofen 200 MG TAB PO PRN (15:17)
[2019-09-16] MEDS: Warfarin Sodium 2 MG TAB PO SCH (17:05)
[2019-09-16] MEDS: Calcium Carbonate 600 MG + Vit D TAB PO SCH (20:35)
[2019-09-16] MEDS: Hydrochlorothiazide 25 MG TAB PO SCH (20:35)
[2019-09-16] MEDS: CONJUGATED ESTROGENS PO SCH (20:36)
[2019-09-16] MEDS: Montelukast Sodium 10 mg Tablet PO SCH (20:36)
[2019-09-16] MEDS: Melatonin 3 MG TAB PO PRN (20:37)
[2019-09-16] MEDS: Simvastatin 40 MG TAB PO SCH (20:37)
[2019-09-17] MEDS: Levothyroxine Sodium 75 MCG TAB PO SCH (05:30)
[2019-09-17 05:41] LABS: Prothrombin Time 30.6 SEC (12.0-14.7)
[2019-09-17] MEDS: Famotidine 20 MG TAB PO SCH (08:34)
[2019-09-17] MEDS: Mometasone/Formoterol 200/5 60 PUFF INH SCH ×2 (08:34→20:38)
[2019-09-17] MEDS: Ferrous Sulfate 325 MG TAB PO SCH ×2 (08:34→17:40)
[2019-09-17] MEDS: Acetaminophen 325 MG TAB PO PRN (08:35)
[2019-09-17] MEDS: Polyethylene Glycol 3350 17 GM Packet PO SCH (08:35)
[2019-09-17] MEDS: Warfarin Sodium 2 MG TAB PO SCH (17:41)
--- NOTE | 2019-09-17 19:55 | PRG ---
DATE OF SERVICE: 09/17/2019 SUBJECTIVE: The patient seen and examined at the bedside. She is doing well today with no complaints, progressing well with physical therapy per patient report and physical therapy documentation. The patient denies any chest pain or discomfort, states the pain is well controlled. OBJECTIVE: VITAL SIGNS: Temperature 97.8, pulse 77, respirations 16, oxygen 96% on room air, and blood pressure 123/60. GENERAL: The patient is alert and oriented x3, in no distress. HEENT: Extraocular muscles intact. Moist mucous membranes. CARDIOVASCULAR: Irregularly irregular rhythm. Normal rate. No murmurs, rubs, or gallops. LUNGS: Clear to auscultation bilaterally. No crackles, wheezes, or rhonchi. EXTREMITIES: No rashes or lesions. Radial pulses 2+ and palpable. ASSESSMENT AND PLAN: 1. Status post right hip intramedullary nail. Physical Therapy and Occupational Therapy are in place. The patient expresses desire to go home. Discussed with Physical Therapy that the patient is making progress; however, she still has some difficulty with hip flexion. Discussed that as long as the patient walks with walker, she will be safe, so plan for discharge on Monday, and we will assure that the patient has proper DME as well as referral for outpatient physical therapy prior to discharge. 2. Chronic atrial fibrillation, rate controlled. Continue warfarin. We will discontinue levothyroxine. 3. Chronic obstructive pulmonary disease. The patient tolerating room air very well. 4. Hypertension. Blood pressure stable. 5. Hypothyroidism. Continue levothyroxine. 6. Digital callus. We will refer to Podiatry as an outpatient. Job ID: [id number]
[2019-09-17] MEDS: CONJUGATED ESTROGENS PO SCH (20:37)
[2019-09-17] MEDS: Hydrochlorothiazide 25 MG TAB PO SCH (20:37)
[2019-09-17] MEDS: Calcium Carbonate 600 MG + Vit D TAB PO SCH (20:37)
[2019-09-17] MEDS: Montelukast Sodium 10 mg Tablet PO SCH (20:37)
[2019-09-17] MEDS: Simvastatin 40 MG TAB PO SCH (20:37)
[2019-09-18] MEDS: Levothyroxine Sodium 75 MCG TAB PO SCH (05:29)
[2019-09-18 05:57] LABS: Prothrombin Time 30.8 SEC (12.0-14.7)
[2019-09-18] MEDS: Famotidine 20 MG TAB PO SCH (07:30)
[2019-09-18] MEDS: Mometasone/Formoterol 200/5 60 PUFF INH SCH ×2 (07:30→20:22)
[2019-09-18] MEDS: Acetaminophen 325 MG TAB PO PRN ×3 (07:30→19:09)
[2019-09-18] MEDS: Ferrous Sulfate 325 MG TAB PO SCH ×2 (07:30→17:06)
[2019-09-18] MEDS: Polyethylene Glycol 3350 17 GM Packet PO SCH (07:33)
[2019-09-18 14:13] LABS: Bilirubin Negative (Negative); Blood, Urine Moderate (Negative); Clarity Slightly Cloudy (Clear); Glucose, Urine (Dipstick) Negative (Negative); Leukocyte Large (Negative); Nitrite Negative (Negative); Protein, Urine (Dipstick) 30 mg/dL (Neg-Trace)
[2019-09-18 14:14] LABS: Urine Culture Reflex No No
[2019-09-18 14:20] LABS: Bacteria/HPF 2+ HPF (None Seen); WBC/HPF Greater Than 50 HPF (0-3)
[2019-09-18] MEDS: Warfarin Sodium 2 MG TAB PO SCH (17:07)
[2019-09-18] MEDS: Sulfameth/Trimethoprim DS 800-160mg TAB PO SCH (19:11)
[2019-09-18] MEDS: Calcium Carbonate 600 MG + Vit D TAB PO SCH (20:21)
[2019-09-18] MEDS: Hydrochlorothiazide 25 MG TAB PO SCH (20:21)
[2019-09-18] MEDS: Montelukast Sodium 10 mg Tablet PO SCH (20:21)
[2019-09-18] MEDS: Simvastatin 40 MG TAB PO SCH (20:21)
[2019-09-18] MEDS: Melatonin 3 MG TAB PO PRN (20:21)
[2019-09-18] MEDS: CONJUGATED ESTROGENS PO SCH (20:25)
[2019-09-19] MEDS: Levothyroxine Sodium 75 MCG TAB PO SCH (05:44)
[2019-09-19] MEDS: Ferrous Sulfate 325 MG TAB PO SCH ×2 (08:31→16:57)
[2019-09-19] MEDS: Sulfameth/Trimethoprim DS 800-160mg TAB PO SCH ×2 (08:31→21:01)
[2019-09-19] MEDS: Famotidine 20 MG TAB PO SCH (08:31)
[2019-09-19] MEDS: Mometasone/Formoterol 200/5 60 PUFF INH SCH ×2 (08:32→20:58)
[2019-09-19] MEDS: Polyethylene Glycol 3350 17 GM Packet PO SCH (08:32)
[2019-09-19] MEDS: Ibuprofen 200 MG TAB PO PRN (10:04)
[2019-09-19 11:20] LABS: INR-International Normal Ratio 3.3; Prothrombin Time 33.6 SEC (12.0-14.7)
[2019-09-19 13:38] VITALS: BMI 25.1
[2019-09-19] MEDS ORDERED: Warfarin Sodium 2 MG TAB PO SCH (17:00)
[2019-09-19] MEDS: Calcium Carbonate 600 MG + Vit D TAB PO SCH (20:57)
[2019-09-19] MEDS: Hydrochlorothiazide 25 MG TAB PO SCH (20:58)
[2019-09-19] MEDS: Montelukast Sodium 10 mg Tablet PO SCH (20:59)
[2019-09-19] MEDS: Simvastatin 40 MG TAB PO SCH (21:00)
[2019-09-19] MEDS: CONJUGATED ESTROGENS PO SCH (21:01)
[2019-09-19] MEDS: Melatonin 3 MG TAB PO PRN (21:01)
--- NOTE | 2019-09-19 22:54 | PRG ---
DATE OF SERVICE: 09/19/2019 SUBJECTIVE: Ms. Delgado was seen and examined at the bedside. She denies any complaints today. Denies chest pain or shortness of breath. Reports overall feeling well. OBJECTIVE: VITAL SIGNS: Temperature 97.8, pulse 85, respirations 18, oxygen saturation 97% on room air, and blood pressure 110/64. GENERAL: The patient is alert and oriented x3, in no distress. HEENT: Extraocular muscles intact. Moist mucous membranes. CARDIOVASCULAR: Irregularly irregular rate and rhythm, rate controlled. No murmurs, rubs, or gallops. Normal S1, S2. LUNGS: Clear to auscultation bilaterally. No crackles, wheezes, or rhonchi. EXTREMITIES: No rashes or lesions. Radial pulses 2+. ASSESSMENT AND PLAN: 1. Status post right hip intramedullary nail. Continue physical therapy and occupational therapy. We will order for outpatient physical therapy as well, likely discharge tomorrow. 2. Chronic atrial fibrillation, rate controlled. Continue warfarin. Lovenox has been discontinued. Pharmacy currently dosing medication. 3. Chronic obstructive pulmonary disease. The patient is tolerating room air. Home medications are on board. 4. Hypertension. Blood pressure remained stable. Continue home antihypertensive regimen. 5. Hypothyroidism. Continue levothyroxine. 6. Digital callus. We will refer to Podiatry as an outpatient. Job ID: [id number]
[2019-09-19 23:40] VITALS: TEMP 97.7
[2019-09-20] MEDS: Levothyroxine Sodium 75 MCG TAB PO SCH (05:30)
[2019-09-20] MEDS: Ferrous Sulfate 325 MG TAB PO SCH (08:59)
[2019-09-20] MEDS: Famotidine 20 MG TAB PO SCH (08:59)
[2019-09-20] MEDS: Mometasone/Formoterol 200/5 60 PUFF INH SCH (08:59)
[2019-09-20] MEDS: Polyethylene Glycol 3350 17 GM Packet PO SCH (08:59)
[2019-09-20] MEDS: Sulfameth/Trimethoprim DS 800-160mg TAB PO SCH (08:59)
[2019-09-20 09:05] VITALS: BP 121/53
[2019-09-20] MEDS: Ibuprofen 200 MG TAB PO PRN (09:42)
[2019-09-20 12:57] LABS: INR-International Normal Ratio 3.6; Prothrombin Time 35.8 SEC (12.0-14.7)
== END 2019-09-20 13:05 | disposition home or self-care (01) | DRG 560 ==
LOC: MADMS 16:44
PROVIDERS: ADMIT Family Medicine; ATTEND Family Medicine
DX: S72.001D Fracture of unspecified part of neck of right femur, subsequent encounter for closed fracture with routine healing (principal); I48.20 Chronic atrial fibrillation, unspecified; J44.9 Chronic obstructive pulmonary disease, unspecified; I10 Essential (primary) hypertension; E03.9 Hypothyroidism, unspecified; K21.9 Gastro-esophageal reflux disease without esophagitis; N95.9 Unspecified menopausal and perimenopausal disorder; L84 Corns and callosities; W18.30XD Fall on same level, unspecified, subsequent encounter; Z79.01 Long term (current) use of anticoagulants; Z79.899 Other long term (current) drug therapy; Z90.49 Acquired absence of other specified parts of digestive tract; Z90.710 Acquired absence of both cervix and uterus
CPT/HCPCS: 36415; 81001; 85014; 85018; 85049; 85610; J1650

== ENCOUNTER 2019-12-03 12:14 | Outpatient (CLI) | payer MEDICARE, OTHER ==
[2019-12-03 12:42] LABS: INR-International Normal Ratio 1.2; PTT 35.6 sec (22.9-36.1); Prothrombin Time 15.1 sec (12.0-14.7)
--- NOTE | 2019-12-03 13:02 | RAD ---
Exam:2 views right hip HISTORY: Patient fell one month ago. Previous fracture. COMPARISON: 08/14/2019 FINDINGS: Uncomplicated gamma nail and dynamic compression screw. Remote lesser trochanter fracture. Visualized sacrum and bony pelvis appear to be intact. IMPRESSION: No evidence of a complicating process loosening with regards to the right hip.
== END 2019-12-03 12:15 | disposition home or self-care (01) ==
LOC: MADRAD 12:14
PROVIDERS: ATTEND Family Medicine
DX: Z51.81 Encounter for therapeutic drug level monitoring (principal); M25.551 Pain in right hip; Z79.01 Long term (current) use of anticoagulants
CPT/HCPCS: 36415; 85610; 85730

== ENCOUNTER 2020-03-02 14:38 | Outpatient (CLI) | payer MEDICARE, OTHER ==
[2020-03-02 15:47] LABS: INR-International Normal Ratio 1.7; PTT 37.1 sec (22.9-36.1); Prothrombin Time 19.5 sec (12.0-14.7)
== END 2020-03-02 14:39 | disposition home or self-care (01) ==
LOC: MADLAB 14:38
PROVIDERS: ATTEND Family Medicine
DX: Z51.81 Encounter for therapeutic drug level monitoring (principal); I48.20 Chronic atrial fibrillation, unspecified; Z79.899 Other long term (current) drug therapy
CPT/HCPCS: 36415; 85610; 85730

== ENCOUNTER 2020-06-16 11:30 | Outpatient (CLI) | payer MEDICARE ==
[2020-06-16 11:57] LABS: INR-International Normal Ratio 3.1; PTT 50.2 sec (22.9-36.1); Prothrombin Time 32.9 sec (12.0-14.7)
== END 2020-06-16 11:31 | disposition home or self-care (01) ==
LOC: MADLAB 11:30
PROVIDERS: ATTEND Family Medicine
DX: E03.9 Hypothyroidism, unspecified (principal); Z79.899 Other long term (current) drug therapy
CPT/HCPCS: 36415; 84443; 85610; 85730

== ENCOUNTER 2020-07-17 11:44 | Outpatient (CLI) | payer MEDICARE ==
--- NOTE | 2020-07-17 12:12 | RAD ---
PA AND LATERAL VIEWS OF CHEST: Date: 07/17/2020 HISTORY: Chest pain. FINDINGS: Comparison made with exam of 06/22/2020. The heart size is enlarged. The aorta is tortuous. The lungs are expanded without lobar consolidation , pneumothoraces, lora pulmonary edema, or pleural effusions. There are mild degenerative changes in the spine. IMPRESSION: No acute process. POS: ANDREW
[2020-07-17 12:24] LABS: INR-International Normal Ratio 2.7; PTT 51.3 sec (22.9-36.1); Prothrombin Time 29.6 sec (12.0-14.7)
== END 2020-07-17 11:45 | disposition home or self-care (01) ==
LOC: MADLAB 11:44
PROVIDERS: ATTEND Family Medicine
DX: R07.89 Other chest pain (principal); I48.20 Chronic atrial fibrillation, unspecified; Z79.899 Other long term (current) drug therapy
CPT/HCPCS: 36415; 71046; 85610; 85730

== ENCOUNTER 2021-03-05 09:47 | Outpatient (CLI) | payer MEDICARE ==
[2021-03-05 10:29] LABS: INR-International Normal Ratio 3.7; Prothrombin Time 36.7 sec (12.0-14.7)
[2021-03-05 10:30] LABS: PTT 63.8 sec (22.9-36.1)
== END 2021-03-05 09:48 | disposition home or self-care (01) ==
LOC: MADLAB 09:47
PROVIDERS: ATTEND Family Medicine
DX: Z51.81 Encounter for therapeutic drug level monitoring (principal); Z79.899 Other long term (current) drug therapy
CPT/HCPCS: 36415; 85610; 85730

== ENCOUNTER 2021-05-25 11:58 | Outpatient (CLI) | payer MEDICARE ==
[2021-05-25 12:18] LABS: INR-International Normal Ratio 2.3; Prothrombin Time 25.7 sec (12.0-14.7)
[2021-05-25 12:19] LABS: PTT 49.7 sec (22.9-36.1)
[2021-05-25 13:00] LABS: Thyroid Stimulating Hormone 2.1947 uIU/mL (0.35-4.94)
[2021-05-25 18:40] LABS: Free T4 (Free Thyroxine) 1.16 ng/dL (0.70-1.48)
== END 2021-05-25 11:59 | disposition home or self-care (01) ==
LOC: MADLAB 11:58
PROVIDERS: ATTEND Family Medicine
DX: Z51.81 Encounter for therapeutic drug level monitoring (principal); E03.9 Hypothyroidism, unspecified; I10 Essential (primary) hypertension; Z79.01 Long term (current) use of anticoagulants
CPT/HCPCS: 36415; 84439; 84443; 85610; 85730

== ENCOUNTER 2021-08-18 09:57 | Outpatient (CLI) | payer MEDICARE ==
[2021-08-18 11:02] LABS: INR-International Normal Ratio 2.1; Prothrombin Time 24.2 sec (12.0-14.7)
[2021-08-18 11:13] LABS: ALT (SGPT) Less than 7 U/L (8-55); AST (SGOT) 14 U/L (5-34); Albumin 3.7 g/dL (3.4-4.8); Alkaline Phosphatase 78 U/L (40-110); Anion Gap 12 mmol/L (10-20); BUN (Urea Nitrogen) 30 mg/dL (9.8-20.1); Bilirubin, Total 0.5 mg/dL (0.2-1.2); Calc. Creatinine Clearance 0 mL/min (70-130); Calcium 8.9 mg/dL (7.8-10.44); Carbon Dioxide 30 mmol/L (23-31); Cardiac Risk 2.7 (Less than 4.5); Chloride 102 mmol/L (98-107); Cholesterol 136 mg/dl (< 200 Desired); Globulin 3.2 g/dL (2.4-3.5); Glucose 84 mg/dL (83-110); HDL Cholesterol 50 mg/dL (>60 Neg Risk); LDL Cholesterol, Calculated 61 mg/dL; Potassium 3.7 mmol/L (3.5-5.1); Protein, Total 6.9 g/dL (5.8-8.1); Sodium 140 mmol/L (136-145); Triglycerides 123 mg/dL (Less than 150)
== END 2021-08-18 09:58 | disposition home or self-care (01) ==
LOC: MADLAB 09:57
PROVIDERS: ATTEND Family Medicine
DX: Z51.81 Encounter for therapeutic drug level monitoring (principal); I48.20 Chronic atrial fibrillation, unspecified; E78.5 Hyperlipidemia, unspecified; I10 Essential (primary) hypertension; Z79.01 Long term (current) use of anticoagulants
CPT/HCPCS: 36415; 80053; 80061; 85610

== ENCOUNTER 2021-12-28 10:12 | Outpatient (CLI) | payer MEDICARE ==
[2021-12-28 10:55] LABS: INR-International Normal Ratio 1.9; Prothrombin Time 22.5 sec (12.0-14.7)
[2021-12-28 11:06] LABS: ALT (SGPT) 11 U/L (8-55); AST (SGOT) 15 U/L (5-34); Albumin 3.8 g/dL (3.4-4.8); Alkaline Phosphatase 65 U/L (40-110); Anion Gap 13 mmol/L (10-20); BUN (Urea Nitrogen) 26 mg/dL (9.8-20.1); Bilirubin, Total 0.6 mg/dL (0.2-1.2); Calc. Creatinine Clearance 0 mL/min (70-130); Calcium 9.2 mg/dL (7.8-10.44); Carbon Dioxide 30 mmol/L (23-31); Cardiac Risk 2.8 (Less than 4.5); Chloride 103 mmol/L (98-107); Cholesterol 145 mg/dl (< 200 Desired); Globulin 2.9 g/dL (2.4-3.5); Glucose 92 mg/dL (83-110); HDL Cholesterol 52 mg/dL (>60 Neg Risk); LDL Cholesterol, Calculated 67 mg/dL; Potassium 3.5 mmol/L (3.5-5.1); Protein, Total 6.7 g/dL (5.8-8.1); Sodium 142 mmol/L (136-145); Triglycerides 131 mg/dL (Less than 150)
== END 2021-12-28 10:13 | disposition home or self-care (01) ==
LOC: MADLAB 10:12
PROVIDERS: ATTEND Family Medicine
DX: I48.20 Chronic atrial fibrillation, unspecified (principal); I10 Essential (primary) hypertension; E78.5 Hyperlipidemia, unspecified
CPT/HCPCS: 36415; 80053; 80061; 85610

== ENCOUNTER 2022-01-27 12:23 | Outpatient (CLI) | payer MEDICARE ==
[2022-01-27 14:42] LABS: INR-International Normal Ratio 1.5; Prothrombin Time 18.1 sec (12.0-14.7)
== END 2022-01-27 12:24 | disposition home or self-care (01) ==
LOC: MADLAB 12:23
PROVIDERS: ATTEND Family Medicine
DX: I48.20 Chronic atrial fibrillation, unspecified (principal)
CPT/HCPCS: 36415; 85610

== ENCOUNTER 2022-03-16 09:52 | Outpatient (CLI) | payer MEDICARE ==
[2022-03-16 10:05] LABS: #Eosinphils 0.1 thou/uL (0.0-0.7); #Lymphocytes 1.4 thou/uL (1.20-3.40); #Monocytes 0.5 thou/uL (0.11-0.59); %Eosinophils 2.6 % (0.0-10.0); %Monocytes 9.2 % (0.0-10.0); %Neutrophils 59.3 % (42.0-75.0); Hemoglobin 12.9 g/dL (12.0-16.0); Mean Corpuscular HGB CONC 31.6 g/dL (32.0-36.0); Mean Corpuscular Hemoglobin 29.2 pg (27.0-31.0); Mean Corpuscular Volume 92.5 fL (78.0-98.0); Mean Platelet Volume 11.6 fL (7.4-10.4); Platelet Count 150 thou/uL (130-400); Red Blood Cell (RBC) Count 4.42 mill/uL (4.20-5.40); White Blood Cell (WBC) Count 5.1 thou/uL (4.8-10.8)
[2022-03-16 10:17] LABS: INR-International Normal Ratio 1.9; Prothrombin Time 22.5 sec (12.0-14.7)
[2022-03-16 10:34] LABS: ALT (SGPT) 9 U/L (8-55); AST (SGOT) 13 U/L (5-34); Albumin 3.8 g/dL (3.4-4.8); Alkaline Phosphatase 69 U/L (40-110); Anion Gap 15 mmol/L (10-20); BUN (Urea Nitrogen) 22 mg/dL (9.8-20.1); Bilirubin, Total 0.5 mg/dL (0.2-1.2); Calc. Creatinine Clearance 0 mL/min (70-130); Calcium 9.4 mg/dL (7.8-10.44); Carbon Dioxide 28 mmol/L (23-31); Cardiac Risk 2.7 (Less than 4.5); Chloride 102 mmol/L (98-107); Cholesterol 134 mg/dl (< 200 Desired); Estimated GFR 54; Globulin 3.1 g/dL (2.4-3.5); Glucose 99 mg/dL (83-110); HDL Cholesterol 49 mg/dL (>60 Neg Risk); LDL Cholesterol, Calculated 61 mg/dL; Potassium 3.7 mmol/L (3.5-5.1); Protein, Total 6.9 g/dL (5.8-8.1); Sodium 141 mmol/L (136-145); Triglycerides 118 mg/dL (Less than 150)
== END 2022-03-16 09:53 | disposition home or self-care (01) ==
LOC: MADLAB 09:52
PROVIDERS: ATTEND Family Medicine
DX: I12.9 Hypertensive chronic kidney disease with stage 1 through stage 4 chronic kidney disease, or unspecified chronic kidney disease (principal); N18.31 Chronic kidney disease, stage 3a; I48.20 Chronic atrial fibrillation, unspecified; E78.5 Hyperlipidemia, unspecified; E03.9 Hypothyroidism, unspecified
CPT/HCPCS: 36415; 80053; 80061; 84443; 85025; 85610

== ENCOUNTER 2022-04-28 11:30 | Outpatient (CLI) | payer MEDICARE ==
[2022-04-28 11:57] LABS: INR-International Normal Ratio 2.8; Prothrombin Time 30.5 sec (12.0-14.7)
== END 2022-04-28 11:31 | disposition home or self-care (01) ==
LOC: MADLAB 11:30
PROVIDERS: ATTEND Family Medicine
DX: I48.20 Chronic atrial fibrillation, unspecified (principal)
CPT/HCPCS: 36415; 85610

== ENCOUNTER 2022-08-11 15:02 | Emergency (ER) | payer MEDICARE ==
[2022-08-11] MEDS ORDERED: methylPREDNISolone Sod Succ/PF 125 MG/2 ML VIAL ONE (15:18)
[2022-08-11] MEDS ORDERED: Ipratropium/Albuterol 3 ML NEB ONE (15:18)
[2022-08-11 16:02] LABS: #Basophils 0.1 thou/uL (0.0-0.2); #Monocytes 1.3 thou/uL (0.11-0.59); %Basophils 0.7 % (0.0-1.0); %Eosinophils 0.1 % (0.0-10.0); %Lymphocytes 16.4 % (21.0-51.0); %Monocytes 10.2 % (0.0-10.0); %Neutrophils 72.7 % (42.0-75.0); Hemoglobin 13.8 g/dL (12.0-16.0); Mean Corpuscular HGB CONC 33.1 g/dL (32.0-36.0); Mean Corpuscular Hemoglobin 30.3 pg (27.0-31.0); Mean Corpuscular Volume 91.5 fl (78.0-98.0); Mean Platelet Volume 11.2 fL (7.4-10.4); Platelet Count 151 10x3/uL (130-400); RBC Distribution Width 11.8 % (11.5-14.5); Red Blood Cell (RBC) Count 4.55 mill/uL (4.20-5.40); White Blood Cell (WBC) Count 12.4 10x3/uL (4.8-10.8)
[2022-08-11 16:08] LABS: INR-International Normal Ratio 2.4
[2022-08-11 16:16] LABS: ALT (SGPT) 9 U/L (8-55); AST (SGOT) 15 U/L (5-34); Albumin 4.1 g/dL (3.4-4.8); Alkaline Phosphatase 73 U/L (40-110); Anion Gap 20 mmol/L (10-20); BUN (Urea Nitrogen) 29 mg/dL (9.8-20.1); Bilirubin, Total 1.5 mg/dL (0.2-1.2); Calc. Creatinine Clearance 0 mL/min (70-130); Calcium 9.8 mg/dL (7.8-10.44); Carbon Dioxide 25 mmol/L (23-31); Chloride 98 mmol/L (98-107); Estimated GFR 46; Globulin 3.4 g/dL (2.4-3.5); Glucose 127 mg/dL (83-110); Magnesium 1.7 mg/dL (1.6-2.6); Protein, Total 7.5 g/dL (5.8-8.1); Sodium 140 mmol/L (136-145)
[2022-08-11 16:25] LABS: Base Excess-Venous 2.1 mmol/L (-2.0 to 3.0); Bicarbonate (HCO3v) 30.2 mmol/L (22.0-28.0); CO2 Tension (PvCO2) 59.5 mmHg (42.0-51.0); Calcium, Ionized 1.11 mmol/L (1.15-1.33); Chloride 101 mmol/L (98-107); Potassium 2.9 mmol/L (3.5-5.1); Sodium 140 mmol/L (138-145)
[2022-08-11] MEDS ORDERED: Potassium Chloride 20 MEQ TAB ONE (16:28)
[2022-08-11] MEDS ORDERED: Sodium Chloride 0.9% 250 ML 250 ML ONE (16:28)
[2022-08-11] MEDS ORDERED: Sodium Chloride 0.9% 100 ML ONE (16:28)
[2022-08-11] MEDS ORDERED: Cefepime 2 GM VIAL ONE (16:29)
[2022-08-11] MEDS ORDERED: Magnesium 2 GM/50 ML BAG (IN WATER) ONE (16:29)
[2022-08-11] MEDS ORDERED: Vancomycin 1 GM VIAL ONE (16:29)
[2022-08-11] MEDS ORDERED: Metoprolol Tartrate 5 MG/5 ML VIAL ONE (18:27)
[2022-08-11 18:46] LABS: Troponin I 0.016 ng/mL (< 0.028)
[2022-08-11 18:59] LABS: Bilirubin Moderate (Negative); Blood, Urine Negative (Negative); Glucose, Urine (Dipstick) Negative (Negative); Ketone, Urine 15 mg/dL (Negative); Leukocyte Trace (Negative); Nitrite Negative (Negative); Protein, Urine (Dipstick) 30 mg/dL (Neg-Trace)
[2022-08-11 19:05] LABS: Clarity Cloudy (Clear)
[2022-08-11 19:07] LABS: RBC/HPF 0-3 HPF (0-3); Specific Gravity, Urine 1.022 (1.002-1.036); Squamous Epithelial 0-3 HPF (0-3)
[2022-08-11 19:08] LABS: Bacteria/HPF 4+ HPF (None Seen)
== END 2022-08-11 18:43 | disposition short-term general hospital (02) ==
LOC: MADERS 15:02
DX: A41.9 Sepsis, unspecified organism (principal); J18.9 Pneumonia, unspecified organism; E87.6 Hypokalemia; I48.91 Unspecified atrial fibrillation; J43.9 Emphysema, unspecified; I11.0 Hypertensive heart disease with heart failure; I50.9 Heart failure, unspecified; E78.00 Pure hypercholesterolemia, unspecified
CPT/HCPCS: 36415; 71045; 80053; 81003; 81015; 82330; 82803; 83605; 83735; 83880; 84484; 85025; 85610; 87040; 87086; 93005; 96365; 96367; 96375; J0692; J2930; J3370; J3475; J3490; J7050; J7620

== ENCOUNTER 2023-08-03 10:20 | Inpatient (IN) | payer MEDICARE ==
[2023-08-03] MEDS ORDERED: Ipratropium/Albuterol 3 ML NEB NEB PRN (14:59)
[2023-08-03] MEDS: FLU VACC QS2023(65UP)/MF59C/PF 60 MCG/0.5 ML SYRINGE IM ONE (16:37)
[2023-08-03] MEDS: Apixaban 2.5 MG TAB PO SCH (21:47)
[2023-08-03] MEDS: Atorvastatin Calcium 10 MG TAB PO SCH (21:47)
[2023-08-04] MEDS: Acetaminophen 325 MG TAB PO PRN (01:50)
[2023-08-04] MEDS: Ipratropium/Albuterol 3 ML NEB NEB PRN (01:54)
[2023-08-04] MEDS: traMADol HCl 50 MG TAB PO PRN (03:18)
[2023-08-04] MEDS: Levothyroxine Sodium 75 MCG TAB PO SCH (05:55)
[2023-08-04] MEDS: Hydrochlorothiazide 25 MG TAB PO SCH (08:14)
[2023-08-04] MEDS: Polyethylene Glycol 3350 17 GM Packet PO PRN (15:33)
[2023-08-06 16:05] LABS: ALT (SGPT) 9 U/L (8-55); AST (SGOT) 24 U/L (5-34); Albumin 2.8 g/dL (3.4-4.8); Alkaline Phosphatase 53 U/L (40-110); Anion Gap 14 mmol/L (10-20); BUN (Urea Nitrogen) 28 mg/dL (9.8-20.1); Bilirubin, Total 1.1 mg/dL (0.2-1.2); Calc. Creatinine Clearance 54 mL/min (70-130); Calcium 8.6 mg/dL (7.8-10.44); Carbon Dioxide 31 mmol/L (23-31); Chloride 97 mmol/L (98-107); Estimated GFR 77; Globulin 2.3 g/dL (2.4-3.5); Glucose 176 mg/dL (83-110); Potassium 3.7 mmol/L (3.5-5.1); Protein, Total 5.1 g/dL (5.8-8.1); Sodium 138 mmol/L (136-145)
[2023-08-06 16:20] LABS: Band 2 % (5-11); Hematocrit 23.9 % (36.0-47.0); Hemoglobin 7.7 g/dL (12.0-16.0); Hypochromia MODERATE=16-30 cells (100X) (0-5/hpf); Lymphocytes 8 % (21-51); MDiff Complete? YES; Manual Diff?? YES; Mean Corpuscular HGB CONC 32.1 g/dL (32.0-36.0); Mean Corpuscular Hemoglobin 30.8 pg (27.0-31.0); Mean Corpuscular Volume 95.9 fl (78.0-98.0); Mean Platelet Volume 9.1 fL (7.4-10.4); Monocytes 8 % (0-10); Neutrophil 80 % (42-75); Platelet Count 214 10x3/uL (130-400); Polychromasia SLIGHT = 2-3 cells (100X) (0-2/hpf); RBC Distribution Width 12.3 % (11.5-14.5); Reflex for Review?? NO; White Blood Cell (WBC) Count 5.7 10x3/uL (4.8-10.8)
[2023-08-06 16:21] LABS: Platelet Adequacy Comment Appears Adequate; Reactive Lymphocytes 2 % (0-10)
[2023-08-06] MEDS: Furosemide 20 MG (2 mL) VIAL SLOW IVP SCH (18:08)
[2023-08-06] MEDS: Ipratropium/Albuterol 3 ML NEB NEB SCH (20:30)
[2023-08-12] MEDS: Ferrous Gluconate 324 MG TAB PO SCH ×2 (14:14→20:15)
[2023-08-14 05:37] LABS: Hematocrit 26.7 % (36.0-47.0); Hemoglobin 8.5 g/dL (12.0-16.0); Mean Corpuscular HGB CONC 31.9 g/dL (32.0-36.0); Mean Corpuscular Hemoglobin 30.2 pg (27.0-31.0); Mean Corpuscular Volume 94.6 fl (78.0-98.0); Mean Platelet Volume 8.5 fL (7.4-10.4); Platelet Count 497 10x3/uL (130-400); Red Blood Cell (RBC) Count 2.82 mill/uL (4.20-5.40); White Blood Cell (WBC) Count 10.2 10x3/uL (4.8-10.8)
[2023-08-14 05:49] LABS: Anion Gap 13 mmol/L (10-20); BUN (Urea Nitrogen) 19 mg/dL (9.8-20.1); Calc. Creatinine Clearance 55 mL/min (70-130); Carbon Dioxide 30 mmol/L (23-31); Chloride 98 mmol/L (98-107); Estimated GFR 78; Glucose 101 mg/dL (83-110); Potassium 2.9 mmol/L (3.5-5.1); Sodium 138 mmol/L (136-145)
[2023-08-14] MEDS: Potassium Bicarbonate/Cit Ac 20 MEQ TAB PO SCH (08:22)
[2023-08-14] MEDS: Potassium Chloride 20 MEQ TAB PO SCH (08:48)
[2023-08-14 20:03] LABS: Anion Gap 13 mmol/L (10-20); BUN (Urea Nitrogen) 29 mg/dL (9.8-20.1); Calc. Creatinine Clearance 43 mL/min (70-130); Calcium 8.7 mg/dL (7.8-10.44); Carbon Dioxide 28 mmol/L (23-31); Chloride 97 mmol/L (98-107); Estimated GFR 58; Glucose 128 mg/dL (83-110); Potassium 3.8 mmol/L (3.5-5.1); Sodium 134 mmol/L (136-145)
[2023-08-15] MEDS: Metoprolol Tartrate 25 MG TAB PO SCH (08:30)
[2023-08-15] MEDS: Potassium Chloride 10 MEQ TAB PO SCH (08:31)
[2023-08-16 11:13] VITALS: BMI 25.8
[2023-08-17 15:54] LABS: Bilirubin Negative (Negative); Blood, Urine Negative (Negative); Glucose, Urine (Dipstick) Negative (Negative); Ketone, Urine Negative (Negative); Leukocyte Negative (Negative); Nitrite Negative (Negative); Protein, Urine (Dipstick) Negative (Neg-Trace); pH, Urine 7.5 (5.0-9.0)
[2023-08-17 15:55] LABS: Clarity Cloudy (Clear)
[2023-08-17 16:12] LABS: RBC/HPF None Seen HPF (0-3); Squamous Epithelial 0-3 HPF (0-3); WBC/HPF 0-3 HPF (0-3)
[2023-08-17 16:13] LABS: Bacteria/HPF 4+ HPF (None Seen); Triple Phosphate Crystal Rare HPF (None Seen)
[2023-08-18 05:38] LABS: Anion Gap 16 mmol/L (10-20); BUN (Urea Nitrogen) 26 mg/dL (9.8-20.1); Calc. Creatinine Clearance 49 mL/min (70-130); Calcium 8.9 mg/dL (7.8-10.44); Carbon Dioxide 23 mmol/L (23-31); Chloride 98 mmol/L (98-107); Estimated GFR 69; Glucose 100 mg/dL (83-110); Potassium 3.3 mmol/L (3.5-5.1); Sodium 134 mmol/L (136-145)
[2023-08-18] MEDS: Potassium Chloride 10 MEQ TAB PO SCH (16:39)
[2023-08-18] MEDS: Sulfameth/Trimethoprim DS 800-160mg TAB PO SCH (21:04)
[2023-08-19 16:30] LABS: SARS-CoV-2 NAA Rapid Test DETECTED (NotDetected)
[2023-08-19] MEDS ORDERED: Benzonatate 100 MG CAP PO PRN (17:00)
[2023-08-19] MEDS: Dexamethasone 4 MG TAB PO SCH (17:44)
[2023-08-20] MEDS: Dexamethasone 1 MG TAB PO SCH (08:23)
[2023-08-21] MEDS: Ipratropium/Albuterol Sulfate 4 GM AER IH SCH ×2 (11:46→20:51)
[2023-08-21] MEDS ORDERED: Acetaminophen 325 MG TAB PO PRN (12:39)
[2023-08-21 14:28] LABS: Anion Gap 14 mmol/L (10-20); BUN (Urea Nitrogen) 38 mg/dL (9.8-20.1); Calc. Creatinine Clearance 35 mL/min (70-130); Calcium 8.7 mg/dL (7.8-10.44); Carbon Dioxide 24 mmol/L (23-31); Chloride 97 mmol/L (98-107); Estimated GFR 47; Glucose 133 mg/dL (83-110); Potassium 4.4 mmol/L (3.5-5.1); Sodium 131 mmol/L (136-145)
[2023-08-21] MEDS ORDERED: Potassium Chloride 20 MEQ TAB PO SCH ×2 (17:00)
[2023-08-22 05:32] LABS: Hematocrit 27.9 % (36.0-47.0); Hemoglobin 9.1 g/dL (12.0-16.0); Platelet Count 277 10x3/uL (130-400)
[2023-08-22] MEDS: Potassium Chloride 10 MEQ TAB PO SCH (08:50)
[2023-08-22] MEDS: Dexamethasone 4 MG TAB PO SCH (08:50)
[2023-08-22] MEDS: Cholecalciferol 1,000 UNITS (25 MCG) TAB PO SCH (08:50)
[2023-08-22] MEDS: Ascorbic Acid 500 mg Chewable Tablet PO SCH (08:50)
[2023-08-22] MEDS: Zinc Sulfate 220 MG CAP PO SCH (08:50)
[2023-08-23 05:38] LABS: Anion Gap 11 mmol/L (10-20); BUN (Urea Nitrogen) 33 mg/dL (9.8-20.1); Calc. Creatinine Clearance 46 mL/min (70-130); Calcium 8.9 mg/dL (7.8-10.44); Carbon Dioxide 22 mmol/L (23-31); Chloride 100 mmol/L (98-107); Estimated GFR 64; Glucose 84 mg/dL (83-110); Potassium 4.2 mmol/L (3.5-5.1); Sodium 129 mmol/L (136-145)
[2023-08-23 07:37] VITALS: BP 118/53; TEMP 97.8
== END 2023-08-23 11:15 | disposition home health service (06) | DRG 559 ==
LOC: MADMS 13:07
PROVIDERS: ADMIT Family Medicine; ATTEND Family Medicine
DX: S72.002D Fracture of unspecified part of neck of left femur, subsequent encounter for closed fracture with routine healing (principal); U07.1 COVID-19; D62 Acute posthemorrhagic anemia; I48.20 Chronic atrial fibrillation, unspecified; J44.1 Chronic obstructive pulmonary disease with (acute) exacerbation; N39.0 Urinary tract infection, site not specified; I13.0 Hypertensive heart and chronic kidney disease with heart failure and stage 1 through stage 4 chronic kidney disease, or unspecified chronic kidney disease; I50.32 Chronic diastolic (congestive) heart failure; E87.1 Hypo-osmolality and hyponatremia; I48.91 Unspecified atrial fibrillation; E78.5 Hyperlipidemia, unspecified; F03.90 Unspecified dementia, unspecified severity, without behavioral disturbance, psychotic disturbance, mood disturbance, and anxiety; N18.31 Chronic kidney disease, stage 3a; E03.9 Hypothyroidism, unspecified; E87.6 Hypokalemia; R53.81 Other malaise; T50.2X5A Adverse effect of carbonic-anhydrase inhibitors, benzothiadiazides and other diuretics, initial encounter; I95.2 Hypotension due to drugs; Z79.890 Hormone replacement therapy; Z79.899 Other long term (current) drug therapy
CPT/HCPCS: 36415; 71045; 80048; 80053; 81001; 83880; 85014; 85018; 85025; 85027; 85049; 87077; 87086; 87186; 87804; J1940; J3535; J7620; J8540; U0002

== ENCOUNTER 2023-09-03 17:53 | Emergency (ER) | payer MEDICARE ==
[~2023-09-03 17:53] MED LIST: Iopamidol 370 76% 100 ML VIAL ONE
[2023-09-03 18:28] LABS: #Lymphocytes 1.5 thou/uL (1.20-3.40); #Monocytes 0.6 thou/uL (0.11-0.59); #Neutrophils 8.7 thou/uL (1.40-6.50); %Basophils 0.4 % (0.0-1.0); %Eosinophils 0.1 % (0.0-10.0); %Monocytes 5.2 % (0.0-10.0); %Neutrophils 80.4 % (42.0-75.0); Hematocrit 30.1 % (36.0-47.0); Hemoglobin 9.7 g/dL (12.0-16.0); Mean Corpuscular HGB CONC 32.2 g/dL (32.0-36.0); Mean Corpuscular Volume 89.9 fl (78.0-98.0); Mean Platelet Volume 11.2 fL (7.4-10.4); Platelet Count 159 10x3/uL (130-400); Red Blood Cell (RBC) Count 3.34 mill/uL (4.20-5.40); White Blood Cell (WBC) Count 10.9 10x3/uL (4.8-10.8)
[2023-09-03 18:49] LABS: Troponin I Less than 0.010 ng/mL (< 0.028)
[2023-09-03 18:50] LABS: ALT (SGPT) 12 U/L (8-55); AST (SGOT) 11 U/L (5-34); Albumin 3.4 g/dL (3.4-4.8); Alkaline Phosphatase 78 U/L (40-110); Anion Gap 19 mmol/L (10-20); BUN (Urea Nitrogen) 25 mg/dL (9.8-20.1); Bilirubin, Total 1.3 mg/dL (0.2-1.2); Calc. Creatinine Clearance 0 mL/min (70-130); Calcium 8.3 mg/dL (7.8-10.44); Carbon Dioxide 22 mmol/L (23-31); Chloride 94 mmol/L (98-107); Estimated GFR 80; Globulin 2.1 g/dL (2.4-3.5); Glucose 102 mg/dL (83-110); Protein, Total 5.5 g/dL (5.8-8.1); Sodium 132 mmol/L (136-145)
[2023-09-03 19:01] LABS: Critical Call Chemistry NUR.AW2; Potassium 2.5 mmol/L (3.5-5.1)
[2023-09-03] MEDS ORDERED: Potassium Chloride 20 MEQ TAB ONE (19:35)
[2023-09-03] MEDS ORDERED: NS 0.9% w/ 20 MEQ KCL 1,000 ML ONE (20:10)
== END 2023-09-03 23:51 | disposition short-term general hospital (02) ==
LOC: MADERS 17:53
DX: E87.6 Hypokalemia (principal); R06.02 Shortness of breath; R94.31 Abnormal electrocardiogram [ECG] [EKG]; I10 Essential (primary) hypertension; I48.91 Unspecified atrial fibrillation; J44.9 Chronic obstructive pulmonary disease, unspecified; E03.9 Hypothyroidism, unspecified; E78.5 Hyperlipidemia, unspecified; Z87.891 Personal history of nicotine dependence; Z79.01 Long term (current) use of anticoagulants; Z79.890 Hormone replacement therapy; Z79.899 Other long term (current) drug therapy
CPT/HCPCS: 71045; 71275; 80053; 83880; 84484; 85025; 93005; J3480; Q9967